=== PATIENT | female | born 1995 | race Caucasian/White ===

== ENCOUNTER 2016-08-31 02:21 | Emergency (ER) | payer OTHER ==
[~2016-08-31] VITALS: Ht 172.7 cm; Wt 53.2 kg
[~2016-08-31 02:21] MED LIST: ACETAMINOPHEN500 MG PO; ANAPROX DS550 M1 PO; AZO STANDARD95 MG PO; BENTYL10 MG PO; CIPRO500 MG PO; KEFLEX500 MG PO; MACROBID100 MG PO; MOBIC7.5 MG PO; NORCO 5/3251 TABLET PO; PERCOCET 5/31 TABLET PO; PRENATAL TABLE1 EAC3 PO; PYRIDIUM200 MG PO; SILVADENE20 GM TP; ULTRAM50 MG PO; ZOFRAN4 MG PO; azo
[2016-08-31 02:41] LABS: HEMATOCRIT 40.1 % (36.0-46.0); MCH 31.1 PG (29.0-34.0); MCHC 34.4 G/DL (30.0-36.0); MCV 90.3 FL (83-99); MEAN PLAT.VOLUME 10.1 uM^3 (9.5-12.4); PLATELET COUNT 254 K/uL (156-360); RBC DIS.WIDTH-CV 11.6 % (11.8-14.6); RBC DIS.WIDTH-SD 36.7 % (39-53); RED BLOOD COUNT 4.44 M/uL (3.80-5.20); WHITE BLOOD COUNT 9.1 K/uL (4.1-10.2)
[2016-08-31 02:50] LABS: CHLORIDE 105 mEq/L (99-109); POTASSIUM 3.3 mEq/L (3.7-5.4); SODIUM 141 mEq/L (136-147)
[2016-08-31 02:52] LABS: GLUCOSE 98 mg/dL (70-99)
[2016-08-31 02:53] LABS: ANION GAP 11 MEQ/L (2-14)
[2016-08-31 02:55] LABS: GFR ESTIMATE (CALCULATED) > 59 mL/min/
[2016-08-31 02:56] LABS: UREA NITROGEN (BUN) 15 mg/dL (9-23)
[2016-08-31 03:01] LABS: TROP-I INTERPRETATION NEGATIVE; TROPONIN-I < 0.01 ng/mL (0.0-0.30)
[2016-08-31 03:15] LABS: D-DIMER ELISA < 0.15 mg/L FEU (< 0.57)
[2016-08-31] MEDS ORDERED: ZITHROMAX250 MG PO (03:24)
[2016-08-31] MEDS ORDERED: PROMETHAZINE HC25 M1 PO (03:24)
[2016-08-31 03:38] LABS: QUANTITATIVE HCG < 4.0 MIU/ML
[2016-08-31] MEDS ORDERED: ATIVAN0.5 MG PO (03:49)
[2016-08-31] MEDS ORDERED: PROAIR HFA8.5 GM IH (03:49)
[2016-08-31 05:07] VITALS: BP 115/65
== END 2016-08-31 05:11 | disposition home or self-care (01) ==
LOC: EME 02:21
DX: R07.9 Chest pain, unspecified (principal); F41.9 Anxiety disorder, unspecified
CPT/HCPCS: 71020; 80048; 84484; 84702; 85027; 85379; 93005; 99281; 99285; J2060; Q0177

== ENCOUNTER 2017-04-14 19:28 | Emergency (ER) | payer OTHER ==
[~2017-04-14] VITALS: Ht 170.2 cm; Wt 53.6 kg
[~2017-04-14 19:28] MED LIST changes: +ATIVAN0.5 MG PO; +PROAIR HFA8.5 GM IH; +PROMETHAZINE HC25 M1 PO; +ZITHROMAX250 MG PO
[2017-04-14 19:53] LABS: HEMATOCRIT 44.7 % (36.0-46.0); MCH 30.8 PG (29.0-34.0); MCHC 33.8 G/DL (30.0-36.0); MCV 91.2 FL (83-99); MEAN PLAT.VOLUME 10.1 uM^3 (9.5-12.4); PLATELET COUNT 248 K/uL (156-360); RBC DIS.WIDTH-CV 11.7 % (11.8-14.6); WHITE BLOOD COUNT 7.9 K/uL (4.1-10.2)
[2017-04-14 20:02] LABS: CHLORIDE 105 mEq/L (99-109); POTASSIUM 4.5 mEq/L (3.7-5.4); SODIUM 142 mEq/L (136-147)
[2017-04-14 20:04] LABS: GLUCOSE 105 mg/dL (70-99)
[2017-04-14 20:05] LABS: ANION GAP 12 MEQ/L (2-14)
[2017-04-14 20:06] LABS: TOTAL BILIRUBIN 0.7 mg/dL (0.0-1.0)
[2017-04-14 20:07] LABS: ALKALINE PHOSPHATASE 75 IU/L (3-129)
[2017-04-14 20:08] LABS: GFR ESTIMATE (CALCULATED) > 59 mL/min/
[2017-04-14 20:09] LABS: UREA NITROGEN (BUN) 10 mg/dL (9-23)
[2017-04-14 20:16] LABS: QUANTITATIVE HCG < 4.0 MIU/ML
[2017-04-14 22:13] LABS: ADD MIUA? YES; BILIRUBIN NEGATIVE; BLOOD MODERATE; COLOR YELLOW ((YELLOW)); GLUCOSE (STRIP) NEGATIVE; KETONES NEGATIVE; LEUKOCYTES NEGATIVE; NITRITE NEGATIVE; PROTEIN (STRIP) NEGATIVE; SPECIFIC GRAVITY 1.011 (1.000-1.030); UROBILINOGEN 0.2 MG/DL (0.2-1.0)
[2017-04-14 22:18] LABS: BACTERIA NONE SEEN /HPF; EPITHELIAL CELLS RARE /HPF; HYALINE CASTS 0-5 /LPF; MUCUS TRACE /LPF; RED BLOOD CELLS 0-5 /HPF (0-5); UCUL ADDED? NO; WHITE BLOOD CELLS 0-5 /HPF (0-5)
[2017-04-14] MEDS ORDERED: ZOFRAN ODT8 MG PO (23:02)
[2017-04-14] MEDS ORDERED: NORCO 5/3251 TABLET PO ×2 (23:02→23:45)
[2017-04-14] MEDS ORDERED: ZOFRAN ODT4 MG PO (23:45)
[2017-04-15 00:08] VITALS: BP 118/61
== END 2017-04-15 00:11 | disposition home or self-care (01) ==
LOC: EME 19:28
DX: R10.31 Right lower quadrant pain (principal); R11.2 Nausea with vomiting, unspecified
CPT/HCPCS: 74177; 76856; 80053; 81003; 84702; 85027; 99281; 99284; J2270; J2405; J7040

== ENCOUNTER 2017-09-07 14:26 | Emergency (ER) | payer OTHER ==
[~2017-09-07] VITALS: Ht 170.2 cm; Wt 55.5 kg
[~2017-09-07 14:26] MED LIST changes: +ZOFRAN ODT4 MG PO; +ZOFRAN ODT8 MG PO
[2017-09-07 14:36] VITALS: BP 130/81
== END 2017-09-07 15:54 | disposition home or self-care (01) ==
LOC: EME 14:26
PROC: 0H9BXZZ Drainage of Right Upper Arm Skin, External Approach (ICD-10-PCS; principal; 2017-09-07)
DX: L02.411 Cutaneous abscess of right axilla (principal); Z88.6 Allergy status to analgesic agent
CPT/HCPCS: 99281; 99284

== ENCOUNTER 2017-09-30 01:37 | Emergency (ER) | payer OTHER ==
[~2017-09-30] VITALS: Ht 170.2 cm; Wt 55.4 kg
[2017-09-30 02:12] LABS: HEMATOCRIT 45.4 % (36.0-46.0); HEMOGLOBIN 15.3 G/DL (11.9-15.5); MCH 31.8 PG (29.0-34.0); MCHC 33.7 G/DL (30.0-36.0); MCV 94.4 FL (83-99); PLATELET COUNT 261 K/uL (156-360); RBC DIS.WIDTH-CV 12.1 % (11.8-14.6); RED BLOOD COUNT 4.81 M/uL (3.80-5.20); WHITE BLOOD COUNT 13.2 K/uL (4.1-10.2)
[2017-09-30 02:28] LABS: CHLORIDE 107 mEq/L (99-109); POTASSIUM 3.9 mEq/L (3.7-5.4); SODIUM 145 mEq/L (136-147)
[2017-09-30 02:29] LABS: MAGNESIUM 2.5 mg/dL (1.3-2.7)
[2017-09-30 02:31] LABS: GLUCOSE 82 mg/dL (70-99)
[2017-09-30 02:32] LABS: TOTAL BILIRUBIN 0.3 mg/dL (0.0-1.0); TROP-I INTERPRETATION NEGATIVE; TROPONIN-I < 0.01 ng/mL (0.0-0.30)
[2017-09-30 02:34] LABS: ALKALINE PHOSPHATASE 86 IU/L (3-129); CREATININE 0.8 mg/dL (0.6-1.3); GFR ESTIMATE (CALCULATED) > 59 mL/min/
[2017-09-30 02:35] LABS: UREA NITROGEN (BUN) 13 mg/dL (9-23)
[2017-09-30 02:36] LABS: AST (GOT) 21 IU/L (2-34)
[2017-09-30 02:37] LABS: ALT (GPT) 15 IU/L (3-49)
[2017-09-30 02:38] LABS: LIPASE 47 U/L (1.0-51.0)
[2017-09-30 02:50] LABS: APPEARANCE CLEAR ((CLEAR)); BILIRUBIN NEGATIVE; BLOOD NEGATIVE; COLOR YELLOW ((YELLOW)); GLUCOSE (STRIP) NEGATIVE; KETONES NEGATIVE; LEUKOCYTES NEGATIVE; NITRITE NEGATIVE; PROTEIN (STRIP) NEGATIVE; SPECIFIC GRAVITY 1.011 (1.000-1.030); UCUL ADDED? NO; UROBILINOGEN 0.2 MG/DL (0.2-1.0)
[2017-09-30 04:06] VITALS: BP 106/68
[2017-09-30 08:23] LABS: THYROTROPIN (TSH) 3.3 MIU/L (0.4-5.5)
== END 2017-09-30 04:38 | disposition home or self-care (01) ==
LOC: EME 01:37
PROVIDERS: Emergency Medicine
DX: I47.1 Supraventricular tachycardia (principal); N83.209 Unspecified ovarian cyst, unspecified side; Z88.6 Allergy status to analgesic agent
CPT/HCPCS: 71045; 80053; 81003; 83690; 83735; 84443; 84484; 85027; 93005; 99281; 99285; J0153; J7030

== ENCOUNTER 2018-02-24 23:56 | Emergency (ER) | payer OTHER ==
[~2018-02-24] VITALS: Ht 170.2 cm; Wt 52.2 kg
[2018-02-25 00:39] LABS: HEMATOCRIT 43.2 % (36.0-46.0); HEMOGLOBIN 14.5 G/DL (11.9-15.5); MCH 30.7 PG (29.0-34.0); MCHC 33.6 G/DL (30.0-36.0); MCV 91.5 FL (83-99); PLATELET COUNT 235 K/uL (156-360); RBC DIS.WIDTH-CV 11.9 % (11.8-14.6); RED BLOOD COUNT 4.72 M/uL (3.80-5.20); WHITE BLOOD COUNT 14.2 K/uL (4.1-10.2)
[2018-02-25 00:49] LABS: CHLORIDE 107 mEq/L (99-109); POTASSIUM 4.3 mEq/L (3.7-5.4); SODIUM 143 mEq/L (136-147)
[2018-02-25 00:50] LABS: GLUCOSE 104 mg/dL (70-99)
[2018-02-25 00:54] LABS: CREATININE 0.7 mg/dL (0.6-1.3); GFR ESTIMATE (CALCULATED) > 59 mL/min/
[2018-02-25 00:55] LABS: UREA NITROGEN (BUN) 5 mg/dL (9-23)
[2018-02-25 01:05] LABS: QUANTITATIVE HCG < 4.0 MIU/ML
[2018-02-25 01:07] LABS: APPEARANCE CLOUDY ((CLEAR)); BILIRUBIN NEGATIVE; BLOOD LARGE; COLOR AMBER ((YELLOW)); GLUCOSE (STRIP) NEGATIVE; KETONES NEGATIVE; LEUKOCYTES TRACE; NITRITE POSITIVE; PROTEIN (STRIP) 100; SPECIFIC GRAVITY 1.011 (1.000-1.030)
[2018-02-25 01:28] LABS: BACTERIA RARE /HPF; EPITHELIAL CELLS 1+ /HPF; MUCUS 4+ /LPF; RED BLOOD CELLS TNTC /HPF (0-5); UCUL ADDED? YES; WHITE BLOOD CELLS TNTC /HPF (0-5)
[2018-02-25] MEDS ORDERED: CEFPODOXIME PR200 MG PO (02:23)
[2018-02-25 03:08] VITALS: BP 119/78
== END 2018-02-25 03:12 | disposition home or self-care (01) ==
LOC: EME 23:56
DX: N12 Tubulo-interstitial nephritis, not specified as acute or chronic (principal); Z87.42 Personal history of other diseases of the female genital tract; Z88.6 Allergy status to analgesic agent
CPT/HCPCS: 80048; 81003; 84702; 85027; 87086; 99281; 99284; J0696; J7030